=== PATIENT | female | born 1960 ===

== ENCOUNTER 2024-07-15 05:00 | Day surgery (SDC) | payer OTHER ==
[2024-07-06 15:28] VITALS: BP 131/86
[~2024-07-15] VITALS: Ht 152.4 cm; Wt 56.2 kg
[~2024-07-15 05:00] MED LIST: PEPCID40 MG PO; SYNTHROID88 MCG PO; TOPROL XL25 M1 PO; ZESTRIL20 MG PO
[2024-07-15] MEDS ORDERED: BUPIVACAINE HCL/MPF 0.5% 30ML VIAL ONE (07:24)
[2024-07-15] MEDS ORDERED: POVIDONE-IODINE 118 ML BOTT TOP ONE ×2 (07:24→08:30)
[2024-07-15] MEDS ORDERED: LIDOCAINE HCL 1%/EPINEPHRINE 20ML VIAL IJ ONE ×2 (07:24→08:30)
[2024-07-15] MEDS ORDERED: CEFAZOLIN SODIUM 1,000 MG VIAL ONE (07:54)
[2024-07-15] MEDS ORDERED: CEFAZOLIN SODIUM 1,000 MG VIAL IV ONE (08:30)
[2024-07-15] MEDS ORDERED: BUPIVACAINE HCL 30 ML VIAL IJ ONE (08:30)
== END 2024-07-15 10:50 | disposition home or self-care (01) ==
LOC: CIR.AMB 05:00
PROVIDERS: ATTEND Colon & Rectal Surgery
DX: R15.9 Full incontinence of feces (principal); R32 Unspecified urinary incontinence; I10 Essential (primary) hypertension; Z88.2 Allergy status to sulfonamides
CPT/HCPCS: 64581; 95971; C1778

== ENCOUNTER 2024-07-22 05:11 | Day surgery (SDC) | payer OTHER ==
[2024-07-06 15:31] VITALS: BP 131/86
[~2024-07-22] VITALS: Ht 152.4 cm; Wt 56.2 kg
[2024-07-22] MEDS ORDERED: BUPIVACAINE HCL 0.5% 50ML VIAL ONE (07:09)
[2024-07-22] MEDS ORDERED: CEFTRIAXONE SODIUM 2,000 MG VIAL ONE (07:09)
[2024-07-22] MEDS ORDERED: METRONIDAZOLE/SODIUM CHLORIDE 500 MG/100 ML PIGGYBACK IV ONE ×2 (07:10→08:15)
[2024-07-22] MEDS ORDERED: LIDOCAINE HCL 2% 20ML VIAL IJ ONE (07:12)
[2024-07-22] MEDS ORDERED: LIDOCAINE HCL 1%/EPINEPHRINE 20ML VIAL IJ ONE ×2 (07:17→08:15)
[2024-07-22] MEDS ORDERED: BUPIVACAINE HCL/PF 0.25% 50 ML VIAL IJ ONE (08:15)
[2024-07-22] MEDS ORDERED: CEFTRIAXONE SODIUM 2,000 MG VIAL IV ONE (08:15)
[2024-07-22] MEDS ORDERED: ONDANSETRON HCL 2 MG/ML VIAL ONE (09:11)
== END 2024-07-22 11:25 | disposition home or self-care (01) ==
LOC: CIR.AMB 05:11
PROVIDERS: ATTEND Colon & Rectal Surgery
DX: R15.9 Full incontinence of feces (principal); R32 Unspecified urinary incontinence; Z88.2 Allergy status to sulfonamides; I10 Essential (primary) hypertension; E03.8 Other specified hypothyroidism; K29.70 Gastritis, unspecified, without bleeding
CPT/HCPCS: 64590; 95971; C1767